=== PATIENT | female | born 1960 | race Caucasian/White ===

== ENCOUNTER 2019-11-15 07:20 | Outpatient (CLI) | payer OTHER, SELFPAY ==
--- NOTE | 2019-11-24 02:26 | SLEEP_ITS ---
Home Sleep Test DATE OF STUDY: 11/15/2019 ORDERING DOCTOR: Milind Valdivia MD REASON FOR THE STUDY: Hypersomnia. HISTORY: This patient is a 59-year-old female, 5 feet 4 inches tall, weighing 174 pounds with a body mass index of 29.8. She has complaints of poor sleep with frequent awakenings at night due to shoulder pain and pain in the hands and wrists as well as elbow. She falls asleep, wakes and falls asleep again. She takes trazodone to help initiate sleep. She tries to reposition herself using pillows, moving her body around and topical creams. Even if she could sleep 12 hours, she will still be tired on waking. Her sleep is fragmented. Normal bedtime is 9:30 to 10 p.m. and she is up at 5:45 or 6 except on the weekends when she is exhausted and just pushes through with what she needs to do. 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 This has been going on for several years and that is extremely upsetting. She does frequently snore and it is constantly loud enough that others complain about it. She occasionally awakens at night with heartburn, belching, or coughing. She does not awaken from sleep feeling short of breath. She occasionally has trouble sleeping with a cold, never gasps for breath at night and never has breathing problems at night witnessed by others. She frequently sweats excessively at night. She never notices her heart pounding or beating irregularly at night. She occasionally falls asleep during the day, occasionally involuntarily, rarely while driving, never during physical effort. She rarely has loss of muscle tone with strong emotion. She occasionally has daytime difficulty due to excessive sleepiness. She rarely feels paralyzed on waking or falling asleep. She does not have vivid dreamlike scenes upon awakening or falling asleep, does not feel afraid to go to sleep and does not have nightmares. She occasionally remembers her dreams. She frequently has racing thoughts, frequently feels sad or depressed, frequently has anxiety and muscular tension. She rarely notices parts of her body jerking. She does not kick at night, does not have crawly achy feelings in her legs, but she occasionally has leg pain during the night. She denies morning jaw pain and rarely grinds her teeth at night. She frequently is bothered by pain during the day and is awakened by pain at night. She constantly wakes up feeling stiff in the morning with sore achy muscles and pain in the neck and spine. She has headaches, fatigue, memory problems, concentration difficulties, and she feels tense. She frequently is repositioning herself during the night and will go to the bathroom when she awakens. She hits snooze several times and still wakes up feeling tired. She describes herself as a light sleeper. She will sleep longer if she does not have anything else going on the next day. Her sleep is disturbed by a bed partner, light, cold heat. She does not take naps. She is usually drowsy in the morning for 2 hours or longer. MEDICAL COMORBIDITIES: Anxiety, depression, migraine headaches, Singh's esophagus, hypertension, hyperlipidemia, fibromyalgia, arthritis, colitis, depression. MEDICATIONS: 1. Fluoxetine 20 mg a day. 2. Montelukast 10 mg a day. 3. Topiramate 25 mg twice a day for headaches. 4. Pantoprazole 40 mg a day for Singh's esophagus. 5. Metoprolol tartrate 50 mg twice a day. 6. Simvastatin 40 mg a day. 7. Trazodone 75 mg a day to initiate sleep. HABITS: Tobacco, 1 pack a day. Caffeine, drinks coffee and tea. No alcohol or recreational drugs. DESCRIPTION OF THE STUDY: On the [place] Sleepiness Scale, her score is 16. This was conducted as an unattended home sleep test with 4-channel monitoring including respiratory effort channel, snoring freddy
== END 2019-11-15 07:21 | disposition home or self-care (01) ==
LOC: ANHCSM 07:21
PROVIDERS: PCP Family Medicine; Visit Provider Family Medicine
DX: G47.33 Obstructive sleep apnea (adult) (pediatric) (principal)
CPT/HCPCS: 95806

== ENCOUNTER 2019-12-12 08:14 | Outpatient (CLI) | payer OTHER, SELFPAY ==
--- NOTE | ~2019-12-12 | MM_ITS ---
EXAMINATION: MM screening ok BI w sam HISTORY: Screening mammogram TECHNIQUE: Craniocaudal and mediolateral oblique 3-D tomosynthesis images were obtained and synthetic 2-D images were generated. CAD analysis was submitted and interpreted. COMPARISON: 11/11/2018, 11/09/2017, 11/05/2016 bilateral digital screening mammogram examinations BREAST PARENCHYMAL COMPOSITION: There are scattered areas of fibroglandular density. FINDINGS: Stable bilateral circumscribed axillary tail lymph nodes. There is no evidence of suspiciou s mass, calcification, or architectural distortion to suggest malignancy in either breast. There has been no suspicious interval change. IMPRESSION: 1. No mammographic evidence of malignancy. 2. Recommend routine screening mammography in one year. BI-RADS Category 2: Benign finding(s). Reviewed, dictated and finalized at location A.
== END 2019-12-12 08:15 | disposition home or self-care (01) ==
PROVIDERS: PCP Family Medicine; Visit Provider Obstetrics & Gynecology
DX: Z12.31 Encounter for screening mammogram for malignant neoplasm of breast (principal)
CPT/HCPCS: 77063; 77067

== ENCOUNTER 2021-01-28 12:12 | Outpatient (CLI) | payer OTHER, SELFPAY ==
--- NOTE | ~2021-01-28 | CT_ITS ---
EXAMINATION: CT orbit BI wo con DATE: 01/28/2021 12:33 INDICATION: Unspecified injury of left eye and orbit, initial encounter. TECHNIQUE: Computed tomography (CT) of the orbits was performed without intravenous contrast. Automat ed exposure control and iterative reconstruction technique were employed. The dose-length product was 152.73 mGy-cm. COMPARISON: None FINDINGS: Bone alignment is normal. No fracture. The ocular globes and extraocular muscles are normal . There is moderate mucosal thickening in right maxillary sinus and mild mucosal thickening in the le ft ethmoid sinuses. The mastoid air cells are normal. IMPRESSION: 1. No fracture. Reviewed, dictated and finalized at location A. 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 No fracture.
== END 2021-01-28 12:13 | disposition home or self-care (01) ==
PROVIDERS: PCP Family Medicine; Visit Provider Nurse Practitioner Family
DX: S05.92XA Unspecified injury of left eye and orbit, initial encounter (principal); X58.XXXA Exposure to other specified factors, initial encounter; H53.9 Unspecified visual disturbance; H57.12 Ocular pain, left eye
CPT/HCPCS: 70480

== ENCOUNTER 2021-02-15 08:05 | Outpatient (CLI) | payer OTHER, SELFPAY ==
--- NOTE | ~2021-02-15 | MM_ITS ---
EXAMINATION: MM screening ok BI w sam HISTORY: Screening mammogram TECHNIQUE: Craniocaudal and mediolateral oblique 3-D tomosynthesis images were obtained and synthetic 2-D images were generated. CAD analysis was submitted and interpreted. COMPARISON: 12/12/2019, 11/11/2018, 11/09/2017 bilateral screening mammogram examinations BREAST PARENCHYMAL COMPOSITION: There are scattered areas of fibroglandular density. FINDINGS: Circumscribed benign appearing stable axillary tail lymph nodes are again noted. There is n o evidence of suspicious mass, calcification, or architectural distortion to suggest malignancy in ei ther breast. There has been no suspicious interval change. IMPRESSION: 1. No mammographic evidence of malignancy. 2. Recommend routine screening mammography in one year. BI-RADS Category 2: Benign finding(s). Reviewed, dictated and finalized at location A. 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
== END 2021-02-15 08:06 | disposition home or self-care (01) ==
LOC: ANHIMG 08:06
PROVIDERS: PCP Family Medicine; Visit Provider Obstetrics & Gynecology
DX: Z12.31 Encounter for screening mammogram for malignant neoplasm of breast (principal)
CPT/HCPCS: 77063; 77067

== ENCOUNTER → 2021-07-06 08:03 | Outpatient (CLI) | payer OTHER, SELFPAY ==
--- NOTE | ~2021-07-06 | MR_ITS ---
EXAMINATION: MR brain/brain stem wo con DATE: 07/06/2021 08:54 INDICATION: Paresthesias of skin. TECHNIQUE: Magnetic resonance imaging (MRI) of the brain and brainstem was performed without intraven ous contrast. Sequences included sagittal and axial T1-weighted FSE, axial diffusion-weighted FS EPI, axial T2*-weighted GRE, axial T2-weighted FLAIR Propeller, and axial T2-weighted Propeller. Apparent diffusion coefficient (ADC) maps were created. COMPARISON: CT orbits 01/28/2021 FINDINGS: There are scattered areas of nonspecific increased T2-weighted signal intensity in the cere bral white matter, which is within normal limits for the patient's age. There is no intracranial hemo rrhage, acute infarction, or abnormal intracranial mass lesion. The ventricles are normal in size. Th ere are small bilateral mastoid effusions. The orbits are normal. The paranasal sinuses are clear. IMPRESSION: 1. Normal aging brain. Reviewed, dictated and finalized at location A. IMPRESSION: 1. Normal aging brain.
== END ==
PROVIDERS: PCP Family Medicine; Visit Provider Family Medicine
DX: R20.2 Paresthesia of skin (principal); Z85.42 Personal history of malignant neoplasm of other parts of uterus; R55 Syncope and collapse; H74.91 Unspecified disorder of right middle ear and mastoid; H74.92 Unspecified disorder of left middle ear and mastoid
CPT/HCPCS: 70551

== ENCOUNTER → 2021-07-17 14:56 | Outpatient (CLI) | payer OTHER, SELFPAY ==
--- NOTE | ~2021-07-17 | XR_ITS ---
XR hip LT min 3V w AP pelvis DATE: 07/17/2021 15:21 INDICATION: Left hip pain TECHNIQUE: AP pelvis. AP, lateral and crosstable lateral views of left hip COMPARISON: None FINDINGS: No pelvic fracture or bone destruction. The pubic symphysis and sacroiliac joints are intac t. Hip joint spaces are symmetric and relatively well preserved. No fracture, dislocation, avascular necrosis or bone destruction of the left hip. Degenerative disc disease and included L4-5 and L5-S1. IMPRESSION: No significant abnormality of the left hip Reviewed, dictated and finalized at location A.
--- NOTE | ~2021-07-17 | XR_ITS ---
XR lumbar spine min 4V DATE: 07/17/2021 15:21 INDICATION: Low back pain, left sciatica TECHNIQUE: AP, lateral, coned lateral lumbosacral and bilateral oblique views COMPARISON: None FINDINGS: Diffuse osteopenia. Mild dextro scoliosis of the thoracolumbar spine. Diffuse idiopathic skeletal hyperostosis of the lower thoracic spine. Normal alignment of the lumbar spine. There is multilevel degenerative disc disease, moderately sever e at L1 to and L5-S1. No fracture or bone destruction, spondylolysis or spondylolisthesis is detected. The sacroiliac joints are intact. Status post cholecystectomy. IMPRESSION: Diffuse idiopathic skeletal hyperostosis of the thoracic spine Multilevel degenerative disc disease of the lumbar spine, most pronounced at L1-2 and L5-S1 Osteopenia Reviewed, dictated and finalized at location A. IMPRESSION: Diffuse idiopathic skeletal hyperostosis of the thoracic spine Multilevel degenerative disc disease of the lumbar spine, most pronounced at L1 -2 and L5-S1 Osteopenia
== END ==
PROVIDERS: PCP Family Medicine; Visit Provider Family Medicine
DX: M25.552 Pain in left hip (principal); M54.42 Lumbago with sciatica, left side; M51.36 Other intervertebral disc degeneration, lumbar region; M51.37 Other intervertebral disc degeneration, lumbosacral region; M85.88 Other specified disorders of bone density and structure, other site
CPT/HCPCS: 72110; 73502

== ENCOUNTER → 2021-08-07 13:06 | Outpatient (CLI) | payer OTHER, SELFPAY ==
--- NOTE | ~2021-08-07 | DEXA_ITS ---
Bone Density Report Name: LIBBY SHABAZZ Age: 61 Sex: Female Ethnicity: White Date of : 1960 Indication: postmenopausal; screening for osteoporosis; height loss; hysterectomy; Referring Provider: GLENYS HAM Study: Bone densitometry was performed. Exam Date: August 07, 2021 Accession number: [id number] Bone Density: Region BMD T-score Z-score Classification AP Spine (L1-L4) 0.937 -1.0 0.4 Normal Femoral Neck (Left) 0.735 -1.0 0.3 Normal Total Hip (Left) 0.901 -0.3 0.6 Normal Femoral Neck (Right) 0.692 -1.4 -0.1 Osteopenia Total Hip (Right) 0.823 -1.0 0.0 Normal Total Hip Mean 0.862 -0.7 0.3 Normal World Health Organization criteria for BMD impression classify patients as: Normal (T-score at or above -1.0), Osteopenia (T-score between -1.0 and -2.5), or Osteoporosis (T-score at or below -2.5). 10-year Fracture Risk(1): Major Osteoporotic Fracture 7.5% Hip Fracture 1.0% Reported Risk Factors: [place] (), Neck BMD=0.692, BMI=32.4, smoking (1) FRAX(R) Version 3.08. Fracture probability calculated for an untreated patient. Fracture probability may be lower if the patient has received treatment. Clinical Information Provided by Patient: Smokes Has the following medical conditions: Hysterectomy Patient maximum height was 64.5 Menopause Age: 30 No regular weight bearing exercise Does not regularly consume dairy products Drinks caffeinated beverages Onset of menses at age 15 Number of children 3 Missed period for more than 6 months in a row Impression: The patient has low bone mass, based on the Right Femoral Neck T-score. The patient has an estimated ten-year risk of hip fracture of 1% and an estimated ten-year risk of major fracture of 7.5%, based on the WHO FRAX algorithm. The patient has risk factors, including: smoking. Discussion: BONE DENSITY IS LOW AT ONE OR MORE SKELETAL SITES. This patient's lowest T-score is low at one or more skeletal sites. It meets the World Health Organization's (WHO) criteria for ?low bone mass? (T-score between -1.0 and -2.5). The patient's 10-year risk of fracture as calculated by FRAX is less than the threshold where pharmacological therapy is recommended by the National Osteoporosis Foundation (NOF). However, all treatment decisions require clinical judgment and consideration of individual patient factors, including patient preferences, comorbidities, previous drug use, risk factors not captured in the FRAX model (e.g., frailty, falls, vitamin D deficiency, increased bone turnover, interval significant decline in bone density) and possible under or overestimation of fracture risk by FRAX. The patient should follow a healthful lifestyle (good nutrition with adequate calcium and vitamin D, and appropriate weight-bearing exercise). Foll
== END ==
PROVIDERS: PCP Family Medicine; Visit Provider Family Medicine
DX: M85.851 Other specified disorders of bone density and structure, right thigh (principal)
CPT/HCPCS: 77080

== ENCOUNTER 2022-04-23 08:40 | Outpatient (CLI) | payer OTHER, SELFPAY ==
--- NOTE | 2022-05-20 12:32 | WPDSLEEPSTUD ---
Sleep Study Date of Study: 04/23/22 Ordering Provider: Milind Valdivia MD Interpreting Physician: Patricia Gray MD Sleep Study Type: Polysomnogram Height: 1.63 m Weight: 87.543 kg Body Mass Index: 33.1 Neck Circumference (inches): 15 [place]: 9 Reason for Sleep Study Loud snoring * 11/16/2019, home sleep test using [facility] showed an apnea-hypopnea index of 5.3, lowest saturation 85%, 48 minutes or 10% of the study spent below 88% saturation Sleep History Alyssia Villalta is a 62-year-old woman who has loud snoring according to her . She occasionally awakens from sleep feeling short of breath. She constantly awakens at night with heartburn, belching or coughing. She is always snoring loudly enough that he complains about. She constantly has trouble sleeping with a cold. She does not wake up gasping for breath at night. She rarely has breathing problems at night that she is aware of. She frequently has excessive sweating at night. She does not notice her heart pounding irregularly at night. She rarely falls asleep during the day, never involuntarily or while driving. She does not have loss of muscle tone with strong emotion. She does not have daytime difficulties due to excessive sleepiness. She does not feel paralyzed on waking or falling asleep. She does not have vivid dreamlike scenes on waking or falling asleep. She does feel afraid to go to sleep. She does not have nightmares. She occasionally remembers her dreams. She constantly has racing thoughts. She occasionally feels sad or depressed. She constantly has anxiety. She constantly has muscular tension. She frequently notices parts of her body jerking. She rarely kicks at night. She frequently has crawling aching feelings in her legs and leg pain at night. She does not have morning jaw pain and she does not grind her teeth during sleep. She constantly is bothered by pain during the day. She frequently is awakened by pain at night. She constantly wakes up feeling stiff in the morning with sore achy muscles and pain in the neck and spine. She has fatigue, memory problems, headaches, concentration difficulties, insomnia and she takes antacids regularly. Normal bedtime is midnight to to 2:00 a.m. taking an hour or longer to fall asleep, typically waking twice at night to get a drink of water or walk around the house.She wakes in the morning between 8:00 a.m. and 11:00 a.m.. On weekends, her bedtime is 2:00 a.m., wake-up time on the weekends is between 11:00 a.m. and 1:00 p.m. She may stay awake for an hour before returning to sleep. These awakenings occur in the middle of the night and in the paper machine tender hours. She occasionally takes naps in the afternoon or evening. A short nap lasting 10 or 15 minutes is not refreshing. She is usually drowsy in the morning for 1 hour or longer. She feels better in the evening compared to other times of day. Habits: Tobacco 1 pack per day. Caffeine: She drinks coffee and tea. [facility] Past Medical History Medical History (Updated 05/20/22 @ 13:04 by Patricia Gray MD) Acute bronchitis Acute non-recurrent maxillary sinusitis Bilateral edema of lower extremity BMI 30.0-30.9,adult BMI 31.0-31.9,adult BMI 33.0-33.9,adult Cat scratch of right lower leg Change in vision Chest pain Chronic depression Chronic insomnia Chronic left hip pain X-ray of the left hip on 07/17/2021 was normal. Chronic serous otitis media of both ears COVID-19 (04/04/21) Facial paresthesia MRI of the brain and brainstem on 07/06/2021 was normal with normal aging. Fibromyalgia Hemorrhoids Hypersomnia Left orbit trauma Migraine with aura and without status migrainosus Obesity (BMI 30.0-34.9) Obstructive sleep apnea on CPAP never started CPAP, too expensive Osteoarthritis involving multiple joints on both sides of body Osteopenia determined by x-ray (~07/17/21) diffuse osteopenia on x-ray of the lumbar spine 07/17/2021. DEXA bon
[2022-05-20 13:04] VITALS: BMI 33.1
== END 2022-04-24 06:22 | disposition home or self-care (01) ==
LOC: ANHCSM 08:42
PROVIDERS: PCP Family Medicine; Visit Provider Family Medicine
DX: G47.33 Obstructive sleep apnea (adult) (pediatric) (principal); R06.83 Snoring; G25.81 Restless legs syndrome; Z72.821 Inadequate sleep hygiene
CPT/HCPCS: 95810

== ENCOUNTER 2022-07-23 12:17 | Outpatient (CLI) | payer OTHER, SELFPAY ==
--- NOTE | ~2022-07-23 | MM_ITS ---
EXAMINATION: MM screening [facility] BI w sam HISTORY: Screening mammogram TECHNIQUE: Craniocaudal and mediolateral oblique 3-D tomosynthesis images were obtained and synthetic 2-D images were generated. CAD analysis was submitted and interpreted. COMPARISON: 02/15/2021, 12/12/2019, 11/11/2018 BREAST PARENCHYMAL COMPOSITION: There are scattered areas of fibroglandular density. FINDINGS: No suspicious mass, calcification, or architectural distortion are identified in either frank ast to suggest malignancy. There has been no suspicious interval change. IMPRESSION: 1. No mammographic evidence of malignancy. 2. Recommend routine screening mammography in one year. BI-RADS Category 1: Negative Reviewed, dictated and finalized at location A.
== END 2022-07-23 12:18 | disposition home or self-care (01) ==
LOC: ANHIMG 12:18
PROVIDERS: PCP Family Medicine; Visit Provider Obstetrics & Gynecology
DX: Z12.31 Encounter for screening mammogram for malignant neoplasm of breast (principal)
CPT/HCPCS: 77063; 77067

== ENCOUNTER → 2023-01-13 12:14 | Outpatient (CLI) | payer OTHER, SELFPAY ==
--- NOTE | ~2023-01-13 | XR_ITS ---
AP view of the pelvis and AP and lateral views of the right hip Clinical history: Pain Findings: No acute fracture or dislocation is seen. Osseous alignment is anatomic. Minimal degenerati ve spurring noted at the superolateral acetabula bilaterally. Soft tissues are unremarkable. Impression: Minimal degenerative change of both hip joints. Reviewed, dictated and finalized at location . Impression: Minimal degenerative change of both hip joints.
== END ==
PROVIDERS: PCP Family Medicine; Visit Provider Family Medicine
DX: M25.551 Pain in right hip (principal)
CPT/HCPCS: 73502

== ENCOUNTER → 2023-04-14 13:50 | Outpatient (CLI) | payer OTHER, SELFPAY ==
--- NOTE | ~2023-04-14 | XR_ITS ---
Clinical Indication: Chest pain PA and lateral views of the chest: Comparison: 10/18/2008 Findings: The lungs are clear, without evidence of focal consolidation or pleural effusion. Cardiome diastinal silhouette is within normal limits. Bones and soft tissues are unremarkable. Impression: Normal chest. Reviewed, dictated and finalized at location . 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
--- NOTE | ~2023-04-14 | XR_ITS ---
Right Knee Technique: AP, lateral, and sunrise views were obtained. Clinical History: Pain Findings: No fracture or dislocation is seen. Osseous alignment is anatomic. Joint spaces are preserv ed without degenerative or erosive change. Soft tissues are unremarkable. No joint effusion is seen. Impression: Unremarkable right knee radiographs. Reviewed, dictated and finalized at location . RIAL SPREADER Impression: Unremarkable right knee radiographs.
== END ==
PROVIDERS: PCP Family Medicine; Visit Provider Family Medicine
DX: R07.89 Other chest pain (principal); M25.561 Pain in right knee; G89.29 Other chronic pain
CPT/HCPCS: 71046; 73564

== ENCOUNTER 2023-04-30 08:59 | Outpatient (CLI) | payer OTHER, SELFPAY ==
--- NOTE | ~2023-04-30 | CT_ITS ---
CT Scan of the Chest without Contrast: Clinical Indication: Lung cancer screening, personal history of nicotine dependence Technique: Contiguous sections were acquired throughout the chest without intravenous contrast. Dose reduction technique was used on this scan by utilizing automated exposure control and iterative recon struction technique. The dose-length product (DLP) was 128.82 mGy-cm. Findings: There is no evidence of any significant mediastinal, hilar or axillary lymphadenopathy. The mediastin al soft tissues appear normal. There is no evidence of pleural or pericardial effusion. 4 mm lingular pulmonary nodule noted. There is minimal left upper lobe paraseptal emphysema. There is minimal subpleural reticulation lungs. Images through the upper abdomen reveal no abnormalities. Impression: Lung RADS 2: Benign appearance. 12 month follow-up screening CT advised. Reviewed, dictated and finalized at [facility]. ET CLERK Impression: Lung RADS 2: Benign appearance. 12 month follow-up screening CT advised.
== END 2023-04-30 09:00 | disposition home or self-care (01) ==
PROVIDERS: PCP Family Medicine; Visit Provider Family Medicine
DX: Z12.2 Encounter for screening for malignant neoplasm of respiratory organs (principal); F17.209 Nicotine dependence, unspecified, with unspecified nicotine-induced disorders
CPT/HCPCS: 71271

== ENCOUNTER 2023-05-11 12:52 | Outpatient (CLI) | payer OTHER, SELFPAY ==
--- NOTE | ~2023-05-11 | MR_ITS ---
EXAMINATION: MR knee RT wo con DATE: 05/11/2023 13:30 INDICATION: Lateral meniscal tear with right knee pain post injury with palpable pop 6 months prior. TECHNIQUE: Magnetic resonance imaging (MRI) of the right knee was performed without intravenous contr ast. Sequences included coronal PD-weighted FSE, coronal PD-weighted FS FSE, sagittal T2-weighted FS E, sagittal PD-weighted FS FSE and axial PD weighted fat saturated FSE. COMPARISON: None. FINDINGS: Medial compartment: Medial meniscus is normal. Articular cartilage is normal. Lateral compartment: Lateral meniscus is normal. Subtle small oblique partial-thickness chondral fissure involving less th an 50% of the cartilage thickness at the medial side of the lateral tibial plateau along the shoulder the intercondylar eminence. Articular cartilage is otherwise normal. Patellofemoral compartment: Partial-thickness chondral ulceration with deep chondral fissuring at the patellar apical ridge, medi al facet and medial side of the lateral patellar facet with foci of underlying subarticular edema-lik e signal change. Deep chondral ulceration and fissuring with mild underlying cortical irregularity at the inferior aspect of the medial trochlea. Ligaments and tendons: Posterior cruciate ligament is normal. The anterior cruciate ligament appears largely intact but with suggestion of some fraying along the fibers at the anterior tibial footplate with associated 16 x 12 x 8 mm ganglion cyst extending anteriorly from the intercondylar notch. The medial collateral ligame nt and fibular collateral ligament complex are normal. The extensor mechanism is normal. The visualiz ed medial and lateral hamstring tendons as well as the iliotibial band are normal. Fluid: Physiologic amount of fluid in the joint space. There is a 2 mm loose osteochondral bodies in the rec ess anterior to the anterior horn of the lateral meniscus. Registered previously noted ganglion cyst anterior to the intercondylar notch there is a second multilobulated ganglion cyst measuring 2.6 x 1. 4 x 0.8 mm located between the posterior medial femoral condyle and the more superficial vessels tend on and distal sartorius muscle belly. Osseous/other: Bone alignment is normal. No fracture or pathologic marrow replacing process. There is increased flui d signal in the superficial suprapatellar fat pad which can be seen with fat pad impingement syndrome . IMPRESSION: 1. 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 2. Minimal osteoarthritis at the lateral compartment with small partial-thickness chondral fissure at the lateral tibial plateau. 3. Small ganglion cyst anterior to the intercondylar notch which appears to arise from a region of mi ld superficial fraying along the anterior margin of the inferior anterior cruciate ligament which oth erwise normal. Correlate with physical exam to confirm functional integrity of the ligament. 4. Edema at the superficial suprapatellar fat pad consistent with fat pad impingement syndrome. Reviewed, dictated and finalized at location A. MASTER IMPRESSION: 1. Mild patellofemoral osteoarthritis with and medial side predominant high-gra de chondral malacia the patella and at the inferior medial trochlea. 2. Minimal osteoarthritis at the lateral compartment with small partial-thickne ss chondral fissure at the lateral tibial plateau. 3. Small ganglion cyst anterior to the intercondylar notch which appears to prakash se from a region of mild superficial fraying along the anterior margin of the i nferior anterior cruciate ligament which otherwise normal. Correlate with physi pranav exam to confirm functional integrity of the ligament. 4. Edema at the superficial
== END 2023-05-11 12:53 | disposition home or self-care (01) ==
LOC: ANHIMG 12:53
PROVIDERS: PCP Family Medicine; Visit Provider Orthopaedic Surgery
DX: S83.281A Other tear of lateral meniscus, current injury, right knee, initial encounter (principal); X58.XXXA Exposure to other specified factors, initial encounter; M17.11 Unilateral primary osteoarthritis, right knee
CPT/HCPCS: 73721

== ENCOUNTER 2023-05-18 10:32 | Outpatient (CLI) | payer OTHER, SELFPAY ==
--- NOTE | 2023-05-18 10:39 | EST_ITS ---
Patient Info Name: Alyssia Villalta Age: 63 years : 1960 Gender: Female Ht: 63 in Wt: 180 lbs BSA: 1.94 m2 HR: 62 bpm BP: 141 / 99 mmHg Heart Rhythm: Sinus Rhythm Exam Date: 05/18/2023 11:04 AM Exam Location: [facility] Patient Status: Outpatient Admit Date: 05/18/2023 Staff Ordering Physician: Milind Valdivia MD Attending Provider: Milind Valdivia MD Exercise Technologist: Mireya Arana RDCS Exercise Physician: Taco Felder DO Exam Type: CA stress test treadmill Study Info Indications - Atypical chest pain A treadmill exercise stress test was performed. Summary 1. 1. Negative Joss exercise stress test for ischemic ST changes by ECG criteria. 2. 2. Reduced functional capacity, achieving 6.8 METs of workload. 3. 3. Appropriate HR response to exercise. 4. 4. Appropriate HR recovery at 1 minute post exercise. 5. 5. Baseline hypertension. 6. 6. No imaging with stress testing. 7. 7. Patient informed of the above results. Protocol: Joss Stress ECG Details Stage: REST Duration (min): 5 min : 51 sec Speed (mph): 0.0 Grade (%): 0 HR (bpm): 66 SBP (mmHg): 141 DBP (mmHg): 99 METS: --- Stage: REST Duration (min): 21 min : 1 sec Speed (mph): 0.0 Grade (%): 0 HR (bpm): 65 SBP (mmHg): 141 DBP (mmHg): 99 METS: --- Stage: STAGE 1 Duration (min): 1 min : 0 sec Speed (mph): 1.7 Grade (%): 10 HR (bpm): 100 SBP (mmHg): 141 DBP (mmHg): 99 METS: --- Stage: STAGE 1 Duration (min): 2 min : 0 sec Speed (mph): 1.7 Grade (%): 10 HR (bpm): 115 SBP (mmHg): 141 DBP (mmHg): 99 METS: --- Stage: STAGE 1 Duration (min): 3 min : 0 sec Speed (mph): 1.7 Grade (%): 10 HR (bpm): 123 SBP (mmHg): 182 DBP (mmHg): 80 METS: --- Stage: STAGE 2 Duration (min): 1 min : 0 sec Speed (mph): 2.5 Grade (%): 12 HR (bpm): 128 SBP (mmHg): 182 DBP (mmHg): 80 METS: --- Stage: STAGE 2 Duration (min): 1 min : 12 sec Speed (mph): 2.5 Grade (%): 12 HR (bpm): 130 SBP (mmHg): 182 DBP (mmHg): 80 METS: --- Stage: RECOVERY Duration (min): 0 min : 47 sec Speed (mph): 0.0 Grade (%): 0 HR (bpm): 121 SBP (mmHg): 180 DBP (mmHg): 82 METS: --- Stage: RECOVERY Duration (min): 1 min : 47 sec Speed (mph): 0.0 Grade (%): 0 HR (bpm): 98 SBP (mmHg): 180 DBP (mmHg): 82 METS: --- Stage: RECOVERY Duration (min): 2 min : 47 sec Speed (mph): 0.0 Grade (%): 0 HR (bpm): 86 SBP (mmHg): 199 DBP (mmHg): 99 METS: --- Stage: RECOVERY Duration (min): 3 min : 47 sec Speed (mph): 0.0 Grade (%): 0 HR (bpm): 79 SBP (mmHg): 199 DBP (mmHg): 99 METS: --- Stage: RECOVERY Duration (min): 4 min : 47 sec Speed (mph): 0.0 Grade (%): 0 HR (bpm): 78 SBP (mmHg): 199 DBP (mmHg): 99 METS: --- Stage: RECOVERY Duration (min): 5 min : 12 sec Speed (mph): 0.0 Grade (%): 0 HR (bpm):
== END 2023-05-18 10:33 | disposition home or self-care (01) ==
LOC: ANHCARD 10:32
PROVIDERS: PCP Family Medicine; Visit Provider Family Medicine
DX: R07.89 Other chest pain (principal)
CPT/HCPCS: 93017

== ENCOUNTER 2023-09-30 09:34 | Outpatient (CLI) | payer OTHER, SELFPAY ==
--- NOTE | ~2023-09-30 | MM_ITS ---
EXAMINATION: MM screening ok BI w sam HISTORY: Screening TECHNIQUE: Craniocaudal and mediolateral oblique 3-D tomosynthesis images were obtained and synthetic 2-D images were generated. CAD analysis was submitted and interpreted. COMPARISON: Comparison to multiple prior studies sequentially, with oldest reviewed study dated 11/05. BREAST PARENCHYMAL COMPOSITION: Not dense: There are scattered areas of fibroglandular density. FINDINGS: There is no evidence of suspicious mass, calcification, or architectural distortion to sugg est malignancy in either breast. There has been no suspicious interval change. IMPRESSION: 1. No mammographic evidence of malignancy. 2. Recommend routine screening mammography in one year. BI-RADS Category 1: Negative Reviewed, dictated and finalized at location B.
== END 2023-09-30 09:35 | disposition home or self-care (01) ==
LOC: ANHIMG 09:36
PROVIDERS: PCP Family Medicine; Visit Provider Obstetrics & Gynecology
DX: Z12.31 Encounter for screening mammogram for malignant neoplasm of breast (principal)
CPT/HCPCS: 77063; 77067

== ENCOUNTER → 2024-01-14 14:54 | Outpatient (CLI) | payer OTHER, SELFPAY ==
--- NOTE | ~2024-01-14 | XR_ITS ---
EXAMINATION: HAND-JAMAL ARTHRITIS 3+VIEWS DATE: 01/14/2024 15:16 INDICATION: Bilateral hand pain TECHNIQUE: Posteroanterior, lateral, and oblique views of the left and of the right hands as well as a ballcatchers view of both hands were obtained. COMPARISON: 07/14/2014 FINDINGS: There is 2 mm left-sided and 1 mm right-sided ulnar minus variance. Bone alignment is otherwise lizy l at the bilateral hands and wrists. Chronic small cortical ossicles near the tip of the bilateral ul daisha styloid processes which could represent chronic nonunited avulsion fracture fragments, degenerati ve loose bodies or heterotopic ossicles related to chronic soft tissue injury. No acute fractures. Po lyarticular osteoarthritis of both hands, severe at the bilateral first carpal metacarpal joints and mild at the bilateral distal radioulnar, triscaphe and multiple bilateral interphalangeal joints with distal predominance. Small lucent lesions within sclerotic margins most likely degenerative subartic ular cystlike change at the distal right radius along the junction of the wrist and distal radioulnar joints and at the proximal margin of the left hamate. Diffuse osteopenia. IMPRESSION: 1. 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 Reviewed, dictated and finalized at location A. IMPRESSION: 1. Polyarticular osteoarthritis, severe at the bilateral first carpal metacarpa l joints and otherwise mild at the bilateral hands and wrists.
== END ==
LOC: EXPTROY 14:58
PROVIDERS: PCP Family Medicine; Visit Provider Family Medicine
DX: M19.041 Primary osteoarthritis, right hand (principal); M19.042 Primary osteoarthritis, left hand; M19.031 Primary osteoarthritis, right wrist; M19.032 Primary osteoarthritis, left wrist
CPT/HCPCS: 73130